=== PATIENT | male | born 1940 | race Caucasian/White ===

== ENCOUNTER 2022-03-06 14:54 | Outpatient (CLI) | payer MEDICARE | END 2022-03-06 14:55 | disposition home or self-care (01) | LOC: CSHULT 14:54 | PROVIDERS: ATTEND Family Medicine | DX: E03.9 Hypothyroidism, unspecified (principal); E04.2 Nontoxic multinodular goiter; R22.0 Localized swelling, mass and lump, head | CPT/HCPCS: 76536 ==

== ENCOUNTER 2022-05-08 21:41 | Emergency (ER) | payer MEDICARE ==
[2022-05-08 22:46] LABS: Bilirubin Neg (Negative); Blood, Urine 25 (Negative); Clarity Clear (Clear); Glucose, Urine (Dipstick) Normal (Negative); Ketone, Urine Negative (Negative); Leukocyte Negative (Negative); Nitrite Negative (Negative); Protein, Urine (Dipstick) Negative (Neg-Trace); Urobilinogen Normal mg/dL (Less than 2)
[2022-05-08 23:00] LABS: Bacteria/HPF None Seen HPF (None Seen); Squamous Epithelial 0-3 HPF (0-3); WBC/HPF 0-3 HPF (0-3)
[2022-05-08 23:13] LABS: #Basophils 0.1 10x3/uL (0.0-0.2); #Eosinphils 0.3 10x3/uL (0.0-0.5); #Monocytes 0.6 10x3/uL (0.0-1.1); #Neutrophils 5.8 10x3/uL (1.5-8.4); %Basophils 0.6 % (0.0-2.0); %Eosinophils 3.3 % (0.0-6.0); %Lymphocytes 17.4 % (18.0-47.0); %Monocytes 6.9 % (0.0-10.0); %Neutrophils 71.6 % (40.0-75.0); Mean Corpuscular HGB CONC 32.1 g/dL (32.0-36.0); Mean Corpuscular Volume 87.4 fl (81.2-95.1); Mean Platelet Volume 13.2 fl (7.4-10.4); Platelet Count 152 10x3/uL (150-450); RBC Distribution Width 13.3 % (11.5-14.5); Red Blood Cell (RBC) Count 4.28 10x6/uL (4.32-5.72); White Blood Cell (WBC) Count 8.2 10x3/uL (3.5-10.5)
[2022-05-08 23:23] LABS: ALT (SGPT) 19 U/L (8-55); AST (SGOT) 24 U/L (5-34); Albumin 3.9 g/dL (3.4-4.8); Alkaline Phosphatase 60 U/L (40-110); Anion Gap 15 mmol/L (10-20); BUN (Urea Nitrogen) 22 mg/dL (8.4-25.7); Bilirubin, Total 0.5 mg/dL (0.2-1.2); Calc. Creatinine Clearance 0 mL/min (70-130); Calcium 8.8 mg/dL (7.8-10.44); Carbon Dioxide 25 mmol/L (23-31); Chloride 103 mmol/L (98-107); Estimated GFR 31; Globulin 2.6 g/dL (2.4-3.5); Glucose 113 mg/dL (83-110); Potassium 4.4 mmol/L (3.5-5.1); Protein, Total 6.5 g/dL (5.8-8.1); Sodium 139 mmol/L (136-145)
[2022-05-08 23:52] LABS: CKMB 1.7 ng/mL (0-6.6)
[2022-05-09] MEDS ORDERED: Aspirin Chewable 81 MG TAB ONE (00:19)
[2022-05-09 02:01] LABS: Lactic Acid 2.3 mmol/L (0.5-2.2)
[2022-05-09 02:03] LABS: INR-International Normal Ratio 1.1; PTT 24.9 sec (22.0-33.0); Prothrombin Time 11.6 sec (9.5-12.1)
== END 2022-05-09 01:54 | disposition short-term general hospital (02) ==
LOC: CSHERS 21:41
DX: I12.9 Hypertensive chronic kidney disease with stage 1 through stage 4 chronic kidney disease, or unspecified chronic kidney disease (principal); E11.22 Type 2 diabetes mellitus with diabetic chronic kidney disease; N18.9 Chronic kidney disease, unspecified; R77.8 Other specified abnormalities of plasma proteins; I25.10 Atherosclerotic heart disease of native coronary artery without angina pectoris; Z79.84 Long term (current) use of oral hypoglycemic drugs; Z79.899 Other long term (current) drug therapy
CPT/HCPCS: 36415; 36416; 70450; 71045; 80053; 81003; 81015; 82553; 83605; 83880; 84484; 85025; 85610; 85730; 93005